=== PATIENT | female | born 1995 | race Two or more races ===

== ENCOUNTER 2019-02-24 16:26 | Emergency (ER) | payer SELFPAY ==
[~2019-02-24] VITALS: Ht 149.9 cm; Wt 57.2 kg
[2019-02-24 16:57] VITALS: BP 101/59
[2019-02-24] MEDS ORDERED: SODIUM CHLORIDE 0.9% 1,000 ML IV ONE ×2 (17:00→18:00)
[2019-02-24] MEDS ORDERED: ONDANSETRON HCL 4 MG/2 ML VIAL IV ONE (17:00)
[2019-02-24 17:50] LABS: Potassium 3.6 mmol/L (3.5-5.1)
[2019-02-24 18:06] LABS: Basophils # (auto) 0.1 uL; Basophils % (auto) 0.4 % (0.0-2.0); Eosinophils # (auto) 0 uL; Eosinophils % (auto) 0.1 % (0.0-7.0); Hemoglobin 15.1 g/dL (12.2-16.2); Lymphocytes # (auto) 2.3 uL; Lymphocytes % (auto) 12.3 % (10.0-50.0); Mean Corpuscular Hemoglobin 28.5 pg (28.0-32.0); Mean Corpuscular Hgb Conc. 32.7 g/dL (32.0-36.0); Monocytes # (auto) 0.9 uL; Monocytes % (auto) 4.7 % (0.0-12.0); Neutrophils # (auto) 15.1 uL; Neutrophils % (auto) 82.5 % (37.0-80.0); Platelet Count (auto) 298 10^3/uL (140-450); Red Blood Cells 5.29 10^6/uL (4.0-5.20); Red Cell Distribution Width 13.9 % (11.8-14.3); White Blood Cell 18.3 10^3/uL (4.4-10.8)
[2019-02-24] MEDS ORDERED: PROMETHAZINE HCL 25 MG/ML 1ML IV ONE (18:15)
[2019-02-24] MEDS ORDERED: cefTRIAXone 1GM/50ML D5W 50 ML IV ONE (18:30)
== END 2019-02-24 19:10 | disposition home or self-care (01) ==
LOC: ER 16:26
DX: O21.8 Other vomiting complicating pregnancy (principal); Z3A.01 Less than 8 weeks gestation of pregnancy
CPT/HCPCS: 36415; 80048; 81002; 84702; 85025; 96361; 96365; 96375; 99284; J0696; J2405; J2550; J7030

== ENCOUNTER 2021-11-09 09:57 | Emergency (ER) | payer BC, MEDICAID ==
[~2021-11-09] VITALS: Ht 149.9 cm; Wt 68.5 kg
[2021-11-09 10:41] LABS: Urine Bacteria NONE SEEN /hpf (None Seen); Urine Blood Negative /uL (Negative); Urine Hyaline Cast FEW /lpf (0 - 2); Urine Mucus FEW (None Seen); Urine WBC 1 /hpf (0 - 5)
[2021-11-09 10:46] LABS: Basophils # (auto) 0 10 ^3/uL (0-0.2); Basophils % (auto) 0.4 % (0.0-2.0); Eosinophils # (auto) 0 10 ^3/uL (0-0.8); Eosinophils % (auto) 0.2 % (0.0-7.0); Hematocrit 45.3 % (36.0-46.0); Hemoglobin 15.1 g/dL (12.2-16.2); Lymphocytes # (auto) 1.8 10 ^3/uL (0.4-5.4); Lymphocytes % (auto) 14.1 % (10.0-50.0); Mean Corpuscular Hemoglobin 28.6 pg (28.0-32.0); Mean Corpuscular Hgb Conc. 33.3 g/dL (32.0-36.0); Monocytes # (auto) 0.6 10 ^3/uL (0-1.3); Monocytes % (auto) 4.5 % (0.0-12.0); Neutrophils # (auto) 10.6 10 ^3/uL (1.6-8.6); Neutrophils % (auto) 80.8 % (37.0-80.0); Nucleated Red Blood Cells % 0.1 %; Red Blood Cells 5.27 10^6/uL (4.0-5.20); Red Cell Distribution Width 13.8 % (11.8-14.3); White Blood Cell 13.1 10^3/uL (4.4-10.8)
[2021-11-09 11:09] LABS: Albumin 3.4 g/dL (3.4-5.0); Calcium 9.1 mg/dL (8.5-10.1); Potassium 3.9 mmol/L (3.5-5.1)
[2021-11-09 11:12] LABS: BUN/Creatinine Ratio 11.3; Bilirubin, Total 0.4 mg/dL (0.2-1.0); Total Protein 7.3 g/dL (6.4-8.2)
[2021-11-09] MEDS ORDERED: ONDANSETRON HCL 4 MG/2 ML VIAL ONE (11:59)
[2021-11-09] MEDS ORDERED: ONDANSETRON HCL 4 MG/2 ML VIAL IV ONE (12:15)
[2021-11-09] MEDS ORDERED: SODIUM CHLORIDE 0.9% 1,000 ML IV ONE (12:15)
[2021-11-09] MEDS ORDERED: METOCLOPRAMIDE HCL 5MG/ml INJ 2ml VIAL IV ONE (14:15)
[2021-11-09 15:23] VITALS: BP 111/73
[2021-11-09] MEDS ORDERED: METO-281 PO (16:20)
== END 2021-11-09 17:13 | disposition home or self-care (01) ==
LOC: ER 09:57
DX: O21.0 Mild hyperemesis gravidarum (principal); Z3A.01 Less than 8 weeks gestation of pregnancy
CPT/HCPCS: 36415; 76801; 80053; 81001; 84702; 85025; 96361; 96374; 96375; 99284; J2405; J2765; J7030

== ENCOUNTER 2022-04-14 10:26 | Observation (INO) | payer BC, MEDICAID ==
[~2022-04-14] VITALS: Ht 149.9 cm; Wt 66.2 kg
[~2022-04-14 10:26] MED LIST: METO-281 PO
[2022-04-14] MEDS ORDERED: BETAMETHASONE ACET (30mg/5ml) 5ml Vial 6mg/ml IM ONE ×3 (11:15→12:30)
[2022-04-14] MEDS: TERBUTALINE SULFATE 1 MG/ML 1ML VIAL SC SCH ×2 (11:32→12:33)
[2022-04-14] MEDS ORDERED: NIF10C PO (11:43)
== END 2022-04-14 13:48 | disposition home or self-care (01) ==
LOC: LDRP 10:26 → UNDOADMOB 10:26 → LDRP 10:34 → UNDODISOB 13:48
PROVIDERS: ADMIT Obstetrics & Gynecology; ATTEND Obstetrics & Gynecology
DX: O62.9 Abnormality of forces of labor, unspecified (principal); O99.891 Other specified diseases and conditions complicating pregnancy; M54.9 Dorsalgia, unspecified; R10.30 Lower abdominal pain, unspecified; Z3A.31 31 weeks gestation of pregnancy
CPT/HCPCS: 59025; 81002; 94760; 96372; G0378; J0702; J3105

== ENCOUNTER 2022-04-15 07:23 | Observation (INO) | payer MEDICAID ==
[~2022-04-15] VITALS: Ht 149.9 cm; Wt 66.2 kg
[~2022-04-15 07:23] MED LIST changes: +NIF10C PO
[2022-04-15] MEDS ORDERED: BETAMETHASONE ACET (30mg/5ml) 5ml Vial 6mg/ml IM ONE (13:00)
== END 2022-04-15 14:38 | disposition home or self-care (01) ==
LOC: UNDOADMOB 12:29 → LDRP 12:29
PROVIDERS: ADMIT Obstetrics & Gynecology; ATTEND Obstetrics & Gynecology
DX: O60.03 Preterm labor without delivery, third trimester (principal); O99.323 Drug use complicating pregnancy, third trimester; F12.90 Cannabis use, unspecified, uncomplicated; Z3A.31 31 weeks gestation of pregnancy
CPT/HCPCS: 59025; 81002; 94760; 96372; G0378

== ENCOUNTER 2022-05-24 18:05 | Observation (INO) | payer MEDICAID ==
[~2022-05-24] VITALS: Ht 149.9 cm; Wt 68.5 kg
[2022-05-24] MEDS ORDERED: LACTATED RINGER'S 1,000 ML IV SCH (19:00)
[2022-05-24] MEDS ORDERED: LACTATED RINGER'S 1,000 ML IV ONE (19:00)
== END 2022-05-24 21:05 | disposition home or self-care (01) ==
LOC: LDRP 18:05
PROVIDERS: ADMIT Obstetrics & Gynecology; ATTEND Obstetrics & Gynecology
DX: O62.9 Abnormality of forces of labor, unspecified (principal); Z3A.37 37 weeks gestation of pregnancy
CPT/HCPCS: 59025; 76818; 81002; 84112; 94760; 96360; G0378; Q0114; 96361

== ENCOUNTER 2022-05-28 06:23 | Inpatient (IN) | payer MEDICAID ==
[~2022-05-28] VITALS: Ht 149.9 cm; Wt 68.9 kg
[~2022-05-28 06:23] MED LIST changes: -NIF10C PO
[2022-05-28] MEDS ORDERED: LIDOCAINE 2%HCL (LOCAL ANESTH.) INJ 10ml MDV IJ PRN (07:45)
[2022-05-28] MEDS ORDERED: PROMETHAZINE HCL 25 MG/ML 1ML IV PRN (07:45)
[2022-05-28] MEDS ORDERED: PHISODERM TOP SOLN 240ML BTL TOP PRN (07:45)
[2022-05-28] MEDS ORDERED: BUTORPHANOL TARTRATE 2 MG/1 ML VIAL IV PRN ×2 (07:45)
[2022-05-28] MEDS ORDERED: WITCH HAZEL-GLYCERIN PAD TOP PRN (07:45)
[2022-05-28] MEDS ORDERED: DERMOPLAST 60ML BOTTLE TOP PRN (07:45)
[2022-05-28] MEDS ORDERED: LACT. RINGERS/OXYTOCIN 20UNITS 500 ML IV ONE ×2 (08:00→08:30)
[2022-05-28] MEDS ORDERED: TERBUTALINE SULFATE 1 MG/ML 1ML VIAL SC PRN (08:00)
[2022-05-28] MEDS ORDERED: LACT. RINGERS/OXYTOCIN 20UNITS 1,000 ML IV ONE (08:00)
[2022-05-28 08:30] LABS: Basophils # (auto) 0.1 10 ^3/uL (0-0.2); Basophils % (auto) 0.5 % (0.0-2.0); Eosinophils # (auto) 0 10 ^3/uL (0-0.8); Hematocrit 38.9 % (36.0-46.0); Hemoglobin 12.9 g/dL (12.2-16.2); Lymphocytes # (auto) 0.6 10 ^3/uL (0.4-5.4); Lymphocytes % (auto) 5.1 % (10.0-50.0); Mean Corpuscular Hemoglobin 27.3 pg (28.0-32.0); Mean Corpuscular Volume 82.6 fL (80.0-100.0); Monocytes # (auto) 0.5 10 ^3/uL (0-1.3); Monocytes % (auto) 3.6 % (0.0-12.0); Neutrophils # (auto) 11.2 10 ^3/uL (1.6-8.6); Neutrophils % (auto) 90.8 % (37.0-80.0); Red Blood Cells 4.72 10^6/uL (4.0-5.20); Red Cell Distribution Width 14.5 % (11.8-14.3); White Blood Cell 12.4 10^3/uL (4.4-10.8)
[2022-05-28 08:42] LABS: Albumin 2.8 g/dL (3.4-5.0); BUN/Creatinine Ratio 12.1; Bilirubin, Total 0.5 mg/dL (0.2-1.0); Calcium 8.8 mg/dL (8.5-10.1); Potassium 3.6 mmol/L (3.5-5.1); Total Protein 6.9 g/dL (6.4-8.2)
[2022-05-28] MEDS ORDERED: PENICILLIN G POT 5MIL/D5 50ML 50 ML IV ONE (08:45)
[2022-05-28 08:51] LABS: INR 0.89 (0.9-1.15); Partial Thromboplastin Time 27.9 sec (24.6-33.4)
[2022-05-28] MEDS ORDERED: fentaNYL CITRATE 100 MCG/2 ML VL IV ONE ×2 (09:00→09:15)
[2022-05-28] MEDS ORDERED: LACTATED RINGER'S 1,000 ML IV ONE (09:00)
[2022-05-28] MEDS ORDERED: ePHEDrine SULFATE 50 MG/ML AMP IV ONE (09:00)
[2022-05-28] MEDS ORDERED: NALOXONE HCL 0.4 MG/ML VIAL IV ONE (09:00)
[2022-05-28] MEDS ORDERED: ROPIVACAINE HCL 200 ML EPI SCH ×2 (09:00→15:15)
[2022-05-28] MEDS: LACTATED RINGER'S 1,000 ML IV SCH ×2 (09:08→09:10)
[2022-05-28] MEDS ORDERED: SODIUM CHLORIDE LOCK 10 ML ONE (10:59)
[2022-05-28] MEDS ORDERED: ONDANSETRON ODT 4 MG TAB PO PRN (13:30)
[2022-05-28] MEDS ORDERED: ACETAMINOPHEN 325 MG TAB PO PRN (13:30)
[2022-05-28 15:20] VITALS: BP 128/85
[2022-05-28] MEDS: IBUPROFEN 600 MG TAB PO PRN ×2 (15:43→22:43)
[2022-05-28 19:15] VITALS: BP 139/73
[2022-05-28 23:00] VITALS: BP 114/59
[2022-05-29 03:15] VITALS: BP 122/72
[2022-05-29 05:07] LABS: RPR Non Reactive (Non Reactive)
[2022-05-29 11:00] VITALS: BP 120/72
[2022-05-29 11:39] LABS: Urine Bacteria NONE SEEN /hpf (None Seen); Urine Blood Negative /uL (Negative); Urine Specific Gravity 1.008 (1.001-1.035); Urine WBC 1 /hpf (0 - 5)
[2022-05-29 12:14] LABS: Alcohol, Urine < 3.0 mg/dL (0-10); Amphetamine Screen, Urine NEGATIVE (NEGATIVE); Barbiturate Scree,Urine NEGATIVE (NEGATIVE); Benzodiazephine Screen, Urine NEGATIVE (NEGATIVE); Cannabinoid Screen, Urine POSITIVE (NEGATIVE); Cocaine Screen, Urine NEGATIVE (NEGATIVE); Opiate Scree,Urine NEGATIVE (NEGATIVE); Phencyclidine Screen, Urine NEGATIVE (NEGATIVE)
[2022-05-29 15:00] VITALS: BP 114/62
== END 2022-05-29 15:30 | disposition home or self-care (01) | DRG 560 ==
LOC: LDRP 06:23 → OBSVTOIN 07:38 → LDRP 07:39
PROVIDERS: ADMIT Obstetrics & Gynecology; ATTEND Obstetrics & Gynecology
PROC: 10E0XZZ Delivery of Products of Conception, External Approach (ICD-10-PCS; principal; 2022-05-28)
PROC: 3E0R3BZ Introduction of Anesthetic Agent into Spinal Canal, Percutaneous Approach (ICD-10-PCS; 2022-05-28)
PROC: 00HU33Z Insertion of Infusion Device into Spinal Canal, Percutaneous Approach (ICD-10-PCS; 2022-05-28)
DX: O69.1XX0 Labor and delivery complicated by cord around neck, with compression, not applicable or unspecified (principal); Z37.0 Single live birth; Z20.822 Contact with and (suspected) exposure to COVID-19; Z3A.37 37 weeks gestation of pregnancy
CPT/HCPCS: 36415; 59025; 59409; 62282; 80053; 80307; 81001; 81002; 84112; 85025; 85610; 85730; 86592; 86850; 86900; 86901; 87426; 94760; 96360; 96361; 96365; 96366; G0378; J2540; J2590